=== PATIENT | male | born 1935 | race Caucasian/White ===

== ENCOUNTER 2021-02-11 10:07 | Inpatient (IN) | payer MEDICARE ==
--- NOTE | 2021-02-11 10:20 | ERPHSYRPT ---
- History of Present Illness Time Seen by Provider: 02/11/21 10:30 Source: patient Exam Limitations: no limitations Physician History: Patient is an 85-year-old male presents to our ED with his caregiver for evaluation. Patient has a history of a stroke. Patient has been aphasic for approximately 3 years. Patient unable to communicate verbally or via writing. Patient is able to hear and conveys information via hand signals. Family is concerned as patient appears to be aspirating on food and saliva. Patient is coughing more than normal. Caregiver adds that his legs are now weak. Patient is normally able to transfer with assistance. Patient now having difficulty standing. Patient normally does not ambulate independently. No fever. No trauma. No nausea or vomiting. Patient unable to convey whether or not he is in pain. No diarrhea reported. No rash. Symptoms have been going on for 2 days. Symptoms are moderate in intensity. No specific worsening or improving factors. Caregiver at bedside voices no other complaints or concerns at this time. Timing/Duration: day(s) (2 days ago) Severity: moderate Modifying Factors: Improves With: nothing Associated Symptoms: cough Allergies/Adverse Reactions: No Known Drug Allergies Allergy (Verified 02/11/21 12:25) Home Medications: No Reportable Medications [No Reported Medications] 02/11/21 [History] - Review of Systems All Other Systems: Unable due to condition - Nursing Vital Signs Nursing Vital Signs: Initial Vital Signs Temperature 97.2 F 02/11/21 10:14 Pulse Rate 67 02/11/21 10:14 Respiratory Rate 18 02/11/21 10:14 Blood Pressure 145/87 02/11/21 10:14 O2 Sat by Pulse Oximetry 98 02/11/21 10:14 Pain Scale Pain Intensity 0 - Physical Exam General Appearance: no apparent distress, other (Patient appears to be weak. Patient requires moderate assist x2 for wheelchair to bed transfer.) Eye Exam: PERRL/EOMI, eyes nml inspection, No scleral icterus, No pale conjunctivae Ears, Nose, Throat Exam: normal ENT inspection, TMs normal, pharynx normal, moist mucous membranes Neck Exam: normal inspection, non-tender, supple, full range of motion Respiratory Exam: normal breath sounds, lungs clear, airway intact, No respiratory distress Cardiovascular Exam: regular rate/rhythm, normal heart sounds, normal peripheral pulses Gastrointestinal/Abdomen Exam: soft, normal bowel sounds, No tenderness, No distention Back Exam: normal inspection, normal range of motion, No CVA tenderness Extremity Exam: normal range of motion, pelvis stable, pedal edema, No calf tenderness, No hai's sign, No tenderness Neurologic Exam: alert, oriented x 3, cooperative Skin Exam: normal color, warm, dry Lymphatic Exam: No adenopathy SpO2 Interpretation: normal O2 Delivery: Room Air - Course Nursing assessment & vital signs reviewed: Yes EKG Interpreted by Me: RATE (71), Sinus Rhythm, NORMAL AXIS, NORMAL INTERVALS - Radiology Exams Chest X-ray Interpretation: Teleradiologist Report (Haziness right base infiltrate versus atelectasis and incidental left upper lobe calcified granuloma. Heart not enlarged with CABG surgery. Bony thorax intact with mild osteopenia and degenerative changes.) - CT Exams Head CT Interpretation: Tele-radiologist Report (Nonacute senile brain. Age- appropriate global atrophy and moderate periventricular degenerative microischemia bilaterally. No acute intracranial hemorrhage abnormal extra- axial fluid collection. No mass-effect. Fourth ventricle is midline. Bony calvarium intact. Paranasal sinuses and mastoid a) Ordered Tests: Active Orders 24 hr Category Date Time Status Cork Insulator STAT Care 02/11/21 10:22 Active EKG-ER Only STAT Care 02/11/21 10:21 Active IV Insertion STAT Care 02/11/21 10:21 Active Pulse Oximetry (ED) STAT Care 02/11/21 10:21 Active CHEST 1 VIEW (PORTABLE) Stat Exams 02/11/21 10:22 Completed HEAD WITHOUT CONTRAST [CT] Stat Exams 02/11/21 10:23 Completed CBC W DIFF Stat Lab 02/11/21 10:28 Completed CMP Stat Lab 02/11/21 10:28 Completed MAGNESIUM Stat Lab 02/11/21 10:28 Completed NT PRO BNP Stat Lab 02/11/21 10:28 Completed TROPONIN Q3H Lab 02/11/21 10:28 Completed TROPONIN Q3H Lab 02/11/21 12:55 Received TROPONIN Q3H Lab 02/11/21 16:30 Ordered TROPONIN Q3H Lab 02/11/21 19:30 Ordered TROPONIN Q3H Lab 02/11/21 22:30 Ordered TSH, 3RD Generation Stat Lab 02/11/21 10:28 Completed UA W/RFX UR CULTURE Stat Lab 02/11/21 11:37 Ordered Transfer Order Routine Transfer 02/11/21 Ordered Lab/Rad Data: Laboratory Result Diagrams 02/11/21 10:28 02/11/21 10:28 Laboratory Results 02/11/21 02/11/21 02/11/21 Range/Units 13:50 10:28 10:28 WBC (4.0-10.5) K/mm3 RBC (4.1-5.6) M/mm3 Hgb (12.5-18.0) gm/dl Hct (42-50) % MCV (78-100) fl MCH (26-32) pg MCHC (32-36) g/dl RDW (11.5-14.0) % Plt Count (150-450) K/mm3 MPV (7.5-11.0) fl Gran % (36.0-66.0) % Eos # (Auto) (0-0.5) Absolute Lymphs (auto) (1.0-4.6) Absolute Monos (auto) (0.0-1.3) Lymphocytes % (24.0-44.0) % Monocytes % (0.0-12.0) % Eosinophils % (0.00-5.0) % Basophils % (0.0-0.4) % Absolute Granulocytes (1.4-6.9) Basophils # (0-0.4) Sodium 140 (137-145) mmol/L Potassium 4.1 (3.5-5.1) mmol/L Chloride 104 (98-107) mmol/L Carbon Dioxide 25 (22-30) mmol/L Anion Gap 14.6 (5-15) MEQ/L BUN 16 (9-20) mg/dL Creatinine 1.10 (0.66-1.25) mg/dL Estimated GFR > 60.0 ML/MIN Glucose 132 H (74-106) mg/dL Calcium 9.6 (8.4-10.2) mg/dL Magnesium 2.4 H (1.6-2.3) mg/dL Total Bilirubin 1.00 (0.2-1.3) mg/dL AST 27 (17-59) U/L ALT 29 (0-50) U/L Alkaline Phosphatase 96 (38-126) U/L Troponin I < 0.012 (0.000-0.034) ng/mL NT-Pro-B Natriuret Pep 476 (0-1800) pg/mL Serum Total Protein 8.1 (6.3-8.2) g/dL Albumin 4.4 (3.5-5.0) g/dL TSH 3rd Generation 2.980 (0.47-4.68) mIU/L SARS-CoV-2 (PCR) NEGATIVE (NEGATIVE) 02/11/21 Range/Units 10:28 WBC 9.4 (4.0-10.5) K/mm3 RBC 5.14 (4.1-5.6) M/mm3 Hgb 14.0 (12.5-18.0) gm/dl Hct 43.6 (42-50) % MCV 84.8 (78-100) fl MCH 27.2 (26-32) pg MCHC 32.1 (32-36) g/dl RDW 16.5 H (11.5-14.0) % Plt Count 160 (150-450) K/mm3 MPV 12.9 H (7.5-11.0) fl Gran % 55.7 (36.0-66.0) % Eos # (Auto) 0.28 (0-0.5) Absolute Lymphs (auto) 2.96 (1.0-4.6) Absolute Monos (auto) 0.86 (0.0-1.3) Lymphocytes % 31.7 (24.0-44.0) % Monocytes % 9.2 (0.0-12.0) % Eosinophils % 3.0 (0.00-5.0) % Basophils % 0.4 (0.0-0.4) % Absolute Granulocytes 5.21 (1.4-6.9) Basophils # 0.04 (0-0.4) Sodium (137-145) mmol/L Potassium (3.5-5.1) mmol/L Chloride (98-107) mmol/L Carbon Dioxide (22-30) mmol/L Anion Gap (5-15) MEQ/L BUN (9-20) mg/dL Creatinine (0.66-1.25) mg/dL Estimated GFR ML/MIN Glucose (74-106) mg/dL Calcium (8.4-10.2) mg/dL Magnesium (1.6-2.3) mg/dL Total Bilirubin (0.2-1.3) mg/dL AST (17-59) U/L ALT (0-50) U/L Alkaline Phosphatase (38-126) U/L Troponin I (0.000-0.034) ng/mL NT-Pro-B Natriuret Pep (0-1800) pg/mL Serum Total Protein (6.3-8.2) g/dL Albumin (3.5-5.0) g/dL TSH 3rd Generation (0.47-4.68) mIU/L SARS-CoV-2 (PCR) (NEGATIVE) - Progress Progress: improved Progress Note: [facility] to transfer patient to the [facility] for further evaluation and treatment. However the [facility] has no beds available at this time. Alyssia of the DC transfer center advised to admit patient to our hospital. 02/11/21 13:[address] Muñoz accepts admission to observation. We will admit patient to floor. Aspirin was not administered due to dysphagia. We will keep n.p.o. for now. Speech therapy consulted. IV fluid infusion initiated. Plan of care discussed with family. They agree to admission [facility] for further evaluation and treatment. Portions of this note were created with voice recognition technology. There may be grammatical, spelling, punctuation or sound alike errors 02/11/21 15:03 02/11/21 15:04 Covid test negative. Laboratory work-up essentially nonremarkable. CT head shows senile brain. Chest x-ray negative for acute cardiopulmonary process. 02/11/21 15:[address] Heavenly Will see patient in: hospital (observation) Counseled pt/family regarding: lab results, diagnosis, rad results - Departure Departure Disposition: Observation Clinical Impression: AMS (altered mental status), Generalized weakness, Calcified granuloma of lung, Dysphagia Condition: Stable Critical Care Time: No Referrals: HOSPITAL,'S [Primary Care Provider] -
[2021-02-11 10:42] LABS: Absolute Neutrophil Ct (ANC) 5.21 (1.4-6.9); BASOPHIL % 0.4 % (0.0-0.4); Basophil (Absolute #) 0.04 (0-0.4); Eosinophil (Absolute #) 0.28 (0-0.5); Hematocrit 43.6 % (42-50); Lymphocyte (Absolute #) 2.96 (1.0-4.6); Lymphocytes % 31.7 % (24.0-44.0); Mean Cell Volume 84.8 fl (78-100); Mean Corpuscular Hemoglobin 27.2 pg (26-32); Mean Corpuscular Hgb Concent. 32.1 g/dl (32-36); Mean Platelet Volume 12.9 fl (7.5-11.0); Monocyte (Absolute #) 0.86 (0.0-1.3); Monocytes % 9.2 % (0.0-12.0); Neutrophil % 55.7 % (36.0-66.0); Platelet Count 160 K/mm3 (150-450); Red Blood Count 5.14 M/mm3 (4.1-5.6); Red Cell Distribution Width 16.5 % (11.5-14.0); White Blood Count 9.4 K/mm3 (4.0-10.5)
--- NOTE | 2021-02-11 10:43 | XRAY ---
Indication: Acute mental status change. Multiple contiguous axial images obtained through the head without contrast. Comparison: None Age-appropriate global atrophy and moderate periventricular degenerative micro-ischemia bilaterally. No acute intracranial hemorrhage, abnormal extra-axial fluid collection, or mass effect. Fourth ventricle is midline. Bony calvarium intact. Visualized paranasal sinuses and mastoid air cells are clear. Impression: Nonacute senile brain.
--- NOTE | 2021-02-11 10:49 | XRAY ---
Indication: Acute mental status change. Pneumonia. Comparison: None Portable chest demonstrates hazy right base infiltrate versus atelectasis and incidental left upper lung calcified granuloma. Heart not enlarged with CABG surgery. Bony thorax intact with mild osteopenia and degenerative changes.
[2021-02-11 11:24] LABS: ALBUMIN 4.4 g/dL (3.5-5.0); ALKALINE PHOSPHATASE 96 U/L (38-126); ANION GAP 14.6 MEQ/L (5-15); BLOOD UREA NITROGEN 16 mg/dL (9-20); CHLORIDE 104 mmol/L (98-107); Calcium 9.6 mg/dL (8.4-10.2); Carbon Dioxide 25 mmol/L (22-30); EST GLOMERULAR FILTRATION RATE > 60.0 ML/MIN; Glucose 132 mg/dL (74-106); MAGNESIUM 2.4 mg/dL (1.6-2.3); NT PRO BNP 476 pg/mL (0-1800); Potassium 4.1 mmol/L (3.5-5.1); SGOT/AST 27 U/L (17-59); SGPT/ALT 29 U/L (0-50); SODIUM 140 mmol/L (137-145); Total Protein 8.1 g/dL (6.3-8.2)
[2021-02-11] MEDS ORDERED: Zofran 4 MG/2 ML VIAL IV PRN (15:32)
[2021-02-11] MEDS: Sodium Chloride 0.9% 1000 ML 1,000 ML IV SCH (16:45)
[2021-02-11 23:21] LABS: Appearance CLOUDY (CLEAR); Bacteria FEW /HPF (NEGATIVE); Bilirubin NEGATIVE (NEGATIVE); Blood NEGATIVE Ery/ul (0-5); Epithelial Cells RARE /HPF (FEW); Glucose NEGATIVE (NEGATIVE); Ketones NEGATIVE (NEGATIVE); Leukocyte Esterase LARGE (NEGATIVE); Mucus SLIGHT /HPF (NEGATIVE); Nitrite NEGATIVE (NEGATIVE); Protein,Urine Dip NEGATIVE (Negative); Specific Gravity 1.012 (1.005-1.025); Urobilinogen NEGATIVE mg/dL (0-1); WBC 51-100 /HPF (0-5)
[2021-02-12 05:07] LABS: Absolute Neutrophil Ct (ANC) 5.26 (1.4-6.9); BASOPHIL % 0.2 % (0.0-0.4); Basophil (Absolute #) 0.02 (0-0.4); Eosinophil (Absolute #) 0.24 (0-0.5); Hematocrit 40.5 % (42-50); Lymphocyte (Absolute #) 1.77 (1.0-4.6); Mean Cell Volume 84.4 fl (78-100); Mean Corpuscular Hemoglobin 27.1 pg (26-32); Mean Corpuscular Hgb Concent. 32.1 g/dl (32-36); Mean Platelet Volume 13.1 fl (7.5-11.0); Monocyte (Absolute #) 0.75 (0.0-1.3); Monocytes % 9.3 % (0.0-12.0); Neutrophil % 65.5 % (36.0-66.0); Platelet Count 140 K/mm3 (150-450)
[2021-02-12 05:20] LABS: ALBUMIN 4.2 g/dL (3.5-5.0); ALKALINE PHOSPHATASE 92 U/L (38-126); ANION GAP 13.4 MEQ/L (5-15); BLOOD UREA NITROGEN 14 mg/dL (9-20); CHLORIDE 104 mmol/L (98-107); Calcium 9.1 mg/dL (8.4-10.2); Carbon Dioxide 25 mmol/L (22-30); Creatinine 1 0.97 mg/dL (0.66-1.25); EST GLOMERULAR FILTRATION RATE > 60.0 ML/MIN; Glucose 115 mg/dL (74-106); Potassium 3.9 mmol/L (3.5-5.1); SGOT/AST 33 U/L (17-59); SGPT/ALT 28 U/L (0-50); SODIUM 138 mmol/L (137-145); Total Protein 7.4 g/dL (6.3-8.2)
[2021-02-12] MEDS ORDERED: APRESOLINE 20 MG/ML INJ IV PRN (07:38)
--- NOTE | 2021-02-12 08:48 | PCM.HP ---
History of Present Illness - Chief Complaint Chief Complaint: Dysphagia History of Present Illness: is a 85 year old male who [facility], he has no local physician. He was brought to the ER by a caregiver yesterday, he has a remote history of CVA and is nonverbal since then, there is reported weakness and some difficulty swallowing, in addition he requires more assistance than usual in transfers currently. (There is no family or caregiver present during my exam today so most of the history is from review of the chart.) - Review of Systems All Other Systems: Unable due to condition Medications & Allergies Home Medications: Home Medication List No Reportable Medications [No Reported Medications] 02/11/21 [History Confirmed 02/11/21] Allergies/Adverse Reactions: Allergies Allergy/AdvReac Type Severity Reaction Status Date / Time No Known Drug Allergies Allergy Verified 02/11/21 12:25 - Past Medical History Neurological History: Stroke Cardiac History: Coronary Artery Disease, High Cholesterol - Past Surgical History Past Surgical History: Yes Cardiac History: CABG - Social History Smoking Status: Unknown if ever smoked Exposure to second hand smoke: No Alcohol: None Drug Use: none - Physical Exam Vital Signs: Vital Signs - 24 hr Temp Pulse Resp BP Pulse Ox 02/12/21 07:43 98.0 F 65 16 153/94 96 02/12/21 04:00 98.6 F 60 18 171/100 94 L 02/12/21 00:00 98.7 F 68 16 152/85 95 02/11/21 20:00 98.6 F 64 17 144/78 95 02/11/21 16:13 97.5 F 77 158/98 02/11/21 15:32 95 02/11/21 15:03 97.5 F 77 20 158/98 98 02/11/21 13:12 97.8 F 74 20 133/83 98 02/11/21 12:00 60 16 131/78 96 02/11/21 11:37 97.8 F 60 20 133/82 96 02/11/21 10:14 97.2 F 67 18 145/87 98 General Appearance: no apparent distress Neurologic Exam: alert, cooperative, aphasia, other (able to nod or shake head no, denies pain. states he feels ok.), No motor deficits Respiratory Exam: normal breath sounds, lungs clear, No respiratory distress Cardiovascular Exam: regular rate/rhythm, normal heart sounds, normal peripheral pulses Gastrointestinal/Abdomen Exam: soft, normal bowel sounds, No tenderness, No mass Extremity Exam: normal inspection, normal range of motion, pelvis stable Results - Labs Lab/Micro Results: Lab Results-Last 24 Hours 02/11/21 02/11/21 02/11/21 Range/Units 10:28 10:28 10:28 WBC 9.4 (4.0-10.5) K/mm3 RBC 5.14 (4.1-5.6) M/mm3 Hgb 14.0 (12.5-18.0) gm/dl Hct 43.6 (42-50) % MCV 84.8 (78-100) fl MCH 27.2 (26-32) pg MCHC 32.1 (32-36) g/dl RDW 16.5 H (11.5-14.0) % Plt Count 160 (150-450) K/mm3 MPV 12.9 H (7.5-11.0) fl Gran % 55.7 (36.0-66.0) % Eos # (Auto) 0.28 (0-0.5) Absolute Lymphs (auto) 2.96 (1.0-4.6) Absolute Monos (auto) 0.86 (0.0-1.3) Lymphocytes % 31.7 (24.0-44.0) % Monocytes % 9.2 (0.0-12.0) % Eosinophils % 3.0 (0.00-5.0) % Basophils % 0.4 (0.0-0.4) % Absolute Granulocytes 5.21 (1.4-6.9) Basophils # 0.04 (0-0.4) Sodium 140 (137-145) mmol/L Potassium 4.1 (3.5-5.1) mmol/L Chloride 104 (98-107) mmol/L Carbon Dioxide 25 (22-30) mmol/L Anion Gap 14.6 (5-15) MEQ/L BUN 16 (9-20) mg/dL Creatinine 1.10 (0.66-1.25) mg/dL Estimated GFR > 60.0 ML/MIN Glucose 132 H (74-106) mg/dL Calcium 9.6 (8.4-10.2) mg/dL Magnesium 2.4 H (1.6-2.3) mg/dL Total Bilirubin 1.00 (0.2-1.3) mg/dL AST 27 (17-59) U/L ALT 29 (0-50) U/L Alkaline Phosphatase 96 (38-126) U/L Troponin I < 0.012 (0.000-0.034) ng/mL NT-Pro-B Natriuret Pep 476 (0-1800) pg/mL Serum Total Protein 8.1 (6.3-8.2) g/dL Albumin 4.4 (3.5-5.0) g/dL TSH 3rd Generation 2.980 (0.47-4.68) mIU/L Urine Color (YELLOW) Urine Appearance (CLEAR) Urine pH (5-6) Ur Specific [place] (1.005-1.025) Urine Protein (Negative) Urine Ketones (NEGATIVE) Urine Blood (0-5) [place]/ul Urine Nitrite (NEGATIVE) Urine Bilirubin (NEGATIVE) Urine Urobilinogen (0-1) mg/dL Ur Leukocyte Esterase (NEGATIVE) Urine WBC (Auto) (0-5) /HPF Urine RBC (Auto) (0-2) /HPF U Epithel Cells (Auto) (FEW) /HPF Urine Bacteria (Auto) (NEGATIVE) /HPF Urine Mucus (Auto) (NEGATIVE) /HPF Urine Culture Reflexed (NO) Urine Glucose (NEGATIVE) mg/dL SARS-CoV-2 (PCR) (NEGATIVE) 02/11/21 02/11/21 02/11/21 Range/Units 11:37 12:55 13:50 WBC (4.0-10.5) K/mm3 RBC (4.1-5.6) M/mm3 Hgb (12.5-18.0) gm/dl Hct (42-50) % MCV (78-100) fl MCH (26-32) pg MCHC (32-36) g/dl RDW (11.5-14.0) % Plt Count (150-450) K/mm3 MPV (7.5-11.0) fl Gran % (36.0-66.0) % Eos # (Auto) (0-0.5) Absolute Lymphs (auto) (1.0-4.6) Absolute Monos (auto) (0.0-1.3) Lymphocytes % (24.0-44.0) % Monocytes % (0.0-12.0) % Eosinophils % (0.00-5.0) % Basophils % (0.0-0.4) % Absolute Granulocytes (1.4-6.9) Basophils # (0-0.4) Sodium (137-145) mmol/L Potassium (3.5-5.1) mmol/L Chloride (98-107) mmol/L Carbon Dioxide (22-30) mmol/L Anion Gap (5-15) MEQ/L BUN (9-20) mg/dL Creatinine (0.66-1.25) mg/dL Estimated GFR ML/MIN Glucose (74-106) mg/dL Calcium (8.4-10.2) mg/dL Magnesium (1.6-2.3) mg/dL Total Bilirubin (0.2-1.3) mg/dL AST (17-59) U/L ALT (0-50) U/L Alkaline Phosphatase (38-126) U/L Troponin I < 0.012 (0.000-0.034) ng/mL NT-Pro-B Natriuret Pep (0-1800) pg/mL Serum Total Protein (6.3-8.2) g/dL Albumin (3.5-5.0) g/dL TSH 3rd Generation (0.47-4.68) mIU/L Urine Color YELLOW (YELLOW) Urine Appearance CLOUDY (CLEAR) Urine pH 7.0 (5-6) Ur Specific [place] 1.012 (1.005-1.025) Urine Protein NEGATIVE (Negative) Urine Ketones NEGATIVE (NEGATIVE) Urine Blood NEGATIVE (0-5) [place]/ul Urine Nitrite NEGATIVE (NEGATIVE) Urine Bilirubin NEGATIVE (NEGATIVE) Urine Urobilinogen NEGATIVE (0-1) mg/dL Ur Leukocyte Esterase LARGE (NEGATIVE) Urine WBC (Auto) 51-100 (0-5) /HPF Urine RBC (Auto) 3-5 (0-2) /HPF U Epithel Cells (Auto) RARE (FEW) /HPF Urine Bacteria (Auto) FEW (NEGATIVE) /HPF Urine Mucus (Auto) SLIGHT (NEGATIVE) /HPF Urine Culture Reflexed YES (NO) Urine Glucose NEGATIVE (NEGATIVE) mg/dL SARS-CoV-2 (PCR) NEGATIVE (NEGATIVE) 10/20/21 10/21/21 10/21/21 Range/Units 16:22 04:45 04:45 WBC 8.0 (4.0-10.5) K/mm3 RBC 4.80 (4.1-5.6) M/mm3 Hgb 13.0 (12.5-18.0) gm/dl Hct 40.5 L (42-50) % MCV 84.4 (78-100) fl MCH 27.1 (26-32) pg MCHC 32.1 (32-36) g/dl RDW 16.0 H (11.5-14.0) % Plt Count 140 L (150-450) K/mm3 MPV 13.1 H (7.5-11.0) fl Gran % 65.5 (36.0-66.0) % Eos # (Auto) 0.24 (0-0.5) Absolute Lymphs (auto) 1.77 (1.0-4.6) Absolute Monos (auto) 0.75 (0.0-1.3) Lymphocytes % 22.0 L (24.0-44.0) % Monocytes % 9.3 (0.0-12.0) % Eosinophils % 3.0 (0.00-5.0) % Basophils % 0.2 (0.0-0.4) % Absolute Granulocytes 5.26 (1.4-6.9) Basophils # 0.02 (0-0.4) Sodium 138 (137-145) mmol/L Potassium 3.9 (3.5-5.1) mmol/L Chloride 104 (98-107) mmol/L Carbon Dioxide 25 (22-30) mmol/L Anion Gap 13.4 (5-15) MEQ/L BUN 14 (9-20) mg/dL Creatinine 0.97 (0.66-1.25) mg/dL Estimated GFR > 60.0 ML/MIN Glucose 115 H (74-106) mg/dL Calcium 9.1 (8.4-10.2) mg/dL Magnesium (1.6-2.3) mg/dL Total Bilirubin 1.30 (0.2-1.3) mg/dL AST 33 (17-59) U/L ALT 28 (0-50) U/L Alkaline Phosphatase 92 (38-126) U/L Troponin I < 0.012 (0.000-0.034) ng/mL NT-Pro-B Natriuret Pep (0-1800) pg/mL Serum Total Protein 7.4 (6.3-8.2) g/dL Albumin 4.2 (3.5-5.0) g/dL TSH 3rd Generation (0.47-4.68) mIU/L Urine Color (YELLOW) Urine Appearance (CLEAR) Urine pH (5-6) Ur Specific [place] (1.005-1.025) Urine Protein (Negative) Urine Ketones (NEGATIVE) Urine Blood (0-5) [place]/ul Urine Nitrite (NEGATIVE) Urine Bilirubin (NEGATIVE) Urine Urobilinogen (0-1) mg/dL Ur Leukocyte Esterase (NEGATIVE) Urine WBC (Auto) (0-5) /HPF Urine RBC (Auto) (0-2) /HPF U Epithel Cells (Auto) (FEW) /HPF Urine Bacteria (Auto) (NEGATIVE) /HPF Urine Mucus (Auto) (NEGATIVE) /HPF Urine Culture Reflexed (NO) Urine Glucose (NEGATIVE) mg/dL SARS-CoV-2 (PCR) (NEGATIVE) - Radiology Impressions Radiology Exams & Impressions: Radiology Procedures Category Date Time Status CHEST 1 VIEW (PORTABLE) Stat Exams 02/11/21 10:22 Completed HEAD WITHOUT CONTRAST [CT] Stat Exams 02/11/21 10:23 Completed MODIFIED BARIUM SWALLOW EXAM Routine Exams 02/12/21 00:00 Ordered Assessment/Plan (1) UTI (urinary tract infection) Current Visit: Yes Status: Acute Assessment & Plan: on rocephin, culture pending Code(s): N39.0 - URINARY TRACT INFECTION, SITE NOT SPECIFIED (2) History of CVA with residual deficit Current Visit: Yes Status: Acute Assessment & Plan: swallow eval ordered, speech recommended MBS that is pending completion Code(s): I69.30 - UNSPECIFIED SEQUELAE OF CEREBRAL INFARCTION (3) AMS (altered mental status) Current Visit: Yes Status: Acute Code(s): R41.82 - ALTERED MENTAL STATUS, UNSPECIFIED
[2021-02-12] MEDS: ROCEPHIN 1 Gm-D5w 50 ml Bag** 1 G/50 ML IVPB IV SCH (11:19)
[2021-02-12] MEDS: Sodium Chloride 0.9% 1000 ML 1,000 ML IV SCH ×2 (11:19→21:25)
--- NOTE | 2021-02-12 11:53 | XRAY ---
Indication: Aspiration. Modified barium swallow study performed bedside by the Department of speech therapy with fluoroscopic assistance provided. Patient ingested multiple consistencies of liquids. Full report and recommendations will be reported separately. Approximately 2 minutes 35 seconds fluoroscopy used.
[2021-02-12] MEDS: MORPHINE SULFATE 2 MG INJ IV PRN (21:25)
[2021-02-13 05:24] LABS: Absolute Neutrophil Ct (ANC) 4.21 (1.4-6.9); BASOPHIL % 0.3 % (0.0-0.4); Basophil (Absolute #) 0.02 (0-0.4); Eosinophil % 3.9 % (0.00-5.0); Eosinophil (Absolute #) 0.26 (0-0.5); Hematocrit 40.2 % (42-50); Hemoglobin 12.7 gm/dl (12.5-18.0); Lymphocytes % 22.4 % (24.0-44.0); Mean Cell Volume 85.7 fl (78-100); Mean Corpuscular Hemoglobin 27.1 pg (26-32); Mean Corpuscular Hgb Concent. 31.6 g/dl (32-36); Mean Platelet Volume 12.9 fl (7.5-11.0); Monocyte (Absolute #) 0.72 (0.0-1.3); Monocytes % 10.7 % (0.0-12.0); Neutrophil % 62.7 % (36.0-66.0); Platelet Count 134 K/mm3 (150-450); Red Blood Count 4.69 M/mm3 (4.1-5.6); White Blood Count 6.7 K/mm3 (4.0-10.5)
[2021-02-13 06:02] LABS: ANION GAP 11.6 MEQ/L (5-15); BLOOD UREA NITROGEN 12 mg/dL (9-20); CHLORIDE 103 mmol/L (98-107); Carbon Dioxide 26 mmol/L (22-30); EST GLOMERULAR FILTRATION RATE > 60.0 ML/MIN; Glucose 98 mg/dL (74-106); MAGNESIUM 2.3 mg/dL (1.6-2.3); Potassium 3.9 mmol/L (3.5-5.1); SODIUM 137 mmol/L (137-145)
[2021-02-13] MEDS: Sodium Chloride 0.9% 1000 ML 1,000 ML IV SCH (07:33)
[2021-02-13] MEDS ORDERED: PHARMACY DOSING REQUEST MC ONE (08:15)
[2021-02-13] MEDS: ROCEPHIN 1 Gm-D5w 50 ml Bag** 1 G/50 ML IVPB IV SCH (09:17)
[2021-02-13] MEDS ORDERED: [UNRECOGNIZED DRUG - NUTRITION] IV SCH (10:00)
[2021-02-13] MEDS ORDERED: CEFAZOLIN 2 GM-D5W BAG** 2 GM/50 ML ML IV SCH (11:30)
[2021-02-13] MEDS ORDERED: Lactated Ringers 1,000 ML IV SCH (12:00)
[2021-02-13] MEDS ORDERED: FLUZONE HIGH-DOSE QUAD 2021-22 IM ONE (12:00)
[2021-02-13] MEDS ORDERED: DIPRIVAN 200 MG/20 ML IV ONE (19:48)
[2021-02-13] MEDS ORDERED: Ketamine HCl 50 MG/ML ONE (19:48)
[2021-02-14] MEDS: MORPHINE SULFATE 2 MG INJ IV PRN ×3 (00:25→22:59)
[2021-02-14 05:12] LABS: Hematocrit 41.6 % (42-50); Hemoglobin 13.4 gm/dl (12.5-18.0); Mean Cell Volume 84.4 fl (78-100); Mean Corpuscular Hemoglobin 27.2 pg (26-32); Mean Corpuscular Hgb Concent. 32.2 g/dl (32-36); Mean Platelet Volume 12.4 fl (7.5-11.0); Platelet Count 133 K/mm3 (150-450); Red Blood Count 4.93 M/mm3 (4.1-5.6); Red Cell Distribution Width 16.1 % (11.5-14.0); White Blood Count 11.9 K/mm3 (4.0-10.5)
[2021-02-14 05:26] LABS: ALBUMIN 4.1 g/dL (3.5-5.0); ANION GAP 14.1 MEQ/L (5-15); BLOOD UREA NITROGEN 11 mg/dL (9-20); CHLORIDE 102 mmol/L (98-107); Calcium 8.9 mg/dL (8.4-10.2); Carbon Dioxide 24 mmol/L (22-30); Creatinine 1 0.95 mg/dL (0.66-1.25); EST GLOMERULAR FILTRATION RATE > 60.0 ML/MIN; Glucose 158 mg/dL (74-106); MAGNESIUM 2.3 mg/dL (1.6-2.3); Potassium 3.7 mmol/L (3.5-5.1); SODIUM 137 mmol/L (137-145); Total Protein 7.3 g/dL (6.3-8.2)
--- NOTE | 2021-02-14 07:38 | PCM.NOTE ---
Date and Time: 02/14/21733 Subjective Assessment: peg tube was placed per surgery, not yet being used. patient is in no distress this morning Objective Exam General Appearance: no apparent distress Respiratory Exam: normal breath sounds, lungs clear, No respiratory distress Cardiovascular Exam: regular rate/rhythm, normal heart sounds Gastrointestinal/Abdomen Exam: soft, No tenderness, No mass Extremity Exam: normal inspection, normal range of motion OBJECTIVE DATA Vital Signs: Vital Signs - 24 hr Temp Pulse Resp BP Pulse Ox 02/14/21 07:23 98.6 F 77 21 160/94 95 02/14/21 04:00 98.9 F 75 18 136/78 96 02/14/21 00:15 98.8 F 88 25 H 153/94 94 L 02/13/21 23:15 98.1 F 82 24 151/87 96 02/13/21 22:45 98.1 F 70 22 159/92 96 02/13/21 21:15 98.6 F 64 14 153/99 94 L 02/13/21 21:00 98.2 F 82 12 164/94 94 L 02/13/21 20:45 98.6 F 64 12 178/95 97 02/13/21 20:30 98.0 F 63 17 170/99 96 02/13/21 19:56 98.2 F 64 16 167/83 97 02/13/21 18:13 97.7 F 57 L 18 145/90 98 02/13/21 16:00 97.7 F 57 L 18 145/90 98 02/13/21 12:00 97.8 F 67 21 142/91 97 02/13/21 08:00 97.7 F 56 L 17 154/78 96 Pain Assessment - Last Documented Pain Intensity 0 [facility] Intake and Output: Intake & Output 02/11/21 02/12/21 02/13/21 02/14/21 11:59 11:59 11:59 11:59 Intake Total 1263 2188 1920 Output Total 250 Balance 1013 2188 1920 Weight 94.6 kg 94.6 kg 90.1 kg Lab Results: Lab Results-Last 24 Hours 02/14/21 02/14/21 Range/Units 04:40 04:40 WBC 11.9 H (4.0-10.5) K/mm3 RBC 4.93 (4.1-5.6) M/mm3 Hgb 13.4 (12.5-18.0) gm/dl Hct 41.6 L (42-50) % MCV 84.4 (78-100) fl MCH 27.2 (26-32) pg MCHC 32.2 (32-36) g/dl RDW 16.1 H (11.5-14.0) % Plt Count 133 L (150-450) K/mm3 MPV 12.4 H (7.5-11.0) fl Sodium 137 (137-145) mmol/L Potassium 3.7 (3.5-5.1) mmol/L Chloride 102 (98-107) mmol/L Carbon Dioxide 24 (22-30) mmol/L Anion Gap 14.1 (5-15) MEQ/L BUN 11 (9-20) mg/dL Creatinine 0.95 (0.66-1.25) mg/dL Estimated GFR > 60.0 ML/MIN Glucose 158 H (74-106) mg/dL Calcium 8.9 (8.4-10.2) mg/dL Magnesium 2.3 (1.6-2.3) mg/dL Serum Total Protein 7.3 (6.3-8.2) g/dL Albumin 4.1 (3.5-5.0) g/dL Radiology Exams: Radiology Procedures Category Date Time Status MODIFIED BARIUM SWALLOW EXAM Routine Exams 02/12/21 10:19 Completed Multi-Disciplinary Progress Notes: Multi-Disciplinary Progress Notes 02/13/21 13:09 Case Management Note by Susana Potter PER [facility] HAS ACCEPTED PATIENT FOR TIME OF DC Initialized on 02/13/21 13:09 - END OF NOTE 02/13/21 12:00 (created 02/13/21 13:11) Case Management Note by Che Woody SPOKE WITH DEANDRA AT [facility] - THEY ARE GOOD TO TAKE PT WHEN MD IS READY FOR DISCHARGE. RELAYED INFORMATION/ORDERS FOR TUBE FEEDS. Initialized on 02/13/21 13:11 - END OF NOTE 02/13/21 10:19 Pharmacy Note by Chalo Winkler Patient needs short term TPN until tube feedings start. Will infuse one bag of Perikabiven peripheral formula at 80ml/hr. This will provide 1300 calories. Initialized on 02/13/21 10:19 - END OF NOTE Assessment/Plan (1) UTI (urinary tract infection) Current Visit: Yes Status: Acute Assessment & Plan: culture negative thus far Code(s): N39.0 - URINARY TRACT INFECTION, SITE NOT SPECIFIED (2) History of CVA with residual deficit Current Visit: Yes Status: Acute Code(s): I69.30 - UNSPECIFIED SEQUELAE OF CEREBRAL INFARCTION (3) AMS (altered mental status) Current Visit: Yes Status: Acute Assessment & Plan: patient with concern for aspiration, mild increase in wbc today, has been on rocephin but culture negative. will start zosyn emperically in case there was some aspiration, will repeat chest xray today Code(s): R41.82 - ALTERED MENTAL STATUS, UNSPECIFIED
--- NOTE | 2021-02-14 08:16 | XRAY ---
Indication: Aspiration. Comparison: February 11, 2021. Portable apical lordotic chest less inflated with mild clearing of previous right base infiltrate/atelectasis. Remaining heart and lungs unremarkable again with incidental CABG and left upper lobe calcified granuloma. No new cardiopulmonary abnormalities.
[2021-02-14] MEDS: Zosyn 3.375 GM Vial 3.375 GM in Sodium Chloride 100ML MINI-BAG PLUS 100 ML IV SCH ×2 (13:21→18:00)
[2021-02-15] MEDS: Zosyn 3.375 GM Vial 3.375 GM in Sodium Chloride 100ML MINI-BAG PLUS 100 ML IV SCH ×3 (00:34→12:15)
[2021-02-15 06:05] LABS: Absolute Neutrophil Ct (ANC) 3.79 (1.4-6.9); BASOPHIL % 0.4 % (0.0-0.4); Basophil (Absolute #) 0.03 (0-0.4); Eosinophil % 4.9 % (0.00-5.0); Eosinophil (Absolute #) 0.34 (0-0.5); Hematocrit 38.5 % (42-50); Hemoglobin 12.3 gm/dl (12.5-18.0); Lymphocyte (Absolute #) 1.85 (1.0-4.6); Lymphocytes % 26.8 % (24.0-44.0); Mean Cell Volume 85.6 fl (78-100); Mean Corpuscular Hemoglobin 27.3 pg (26-32); Mean Corpuscular Hgb Concent. 31.9 g/dl (32-36); Mean Platelet Volume 13.2 fl (7.5-11.0); Neutrophil % 54.9 % (36.0-66.0); Platelet Count 127 K/mm3 (150-450); Red Cell Distribution Width 16.5 % (11.5-14.0); White Blood Count 6.9 K/mm3 (4.0-10.5)
[2021-02-15 06:26] LABS: ALBUMIN 3.7 g/dL (3.5-5.0); ALKALINE PHOSPHATASE 78 U/L (38-126); ANION GAP 13.7 MEQ/L (5-15); BLOOD UREA NITROGEN 14 mg/dL (9-20); CHLORIDE 101 mmol/L (98-107); Calcium 8.8 mg/dL (8.4-10.2); Carbon Dioxide 26 mmol/L (22-30); Creatinine 1 1.17 mg/dL (0.66-1.25); EST GLOMERULAR FILTRATION RATE > 60.0 ML/MIN; Glucose 133 mg/dL (74-106); Potassium 3.3 mmol/L (3.5-5.1); SGOT/AST 45 U/L (17-59); SGPT/ALT 38 U/L (0-50); SODIUM 138 mmol/L (137-145); Total Protein 6.8 g/dL (6.3-8.2)
--- NOTE | 2021-02-15 09:18 | PCM.DS ---
Discharge Summary Date of Admission: 02/12/21 08:44 Admitting Physician: KODY URIARTE Consults: Consults on Case 02/13/21 08:14 Consult Surgery ROUTINE 02/13/21 10:25 Nutritional Consult ROUTINE Primary Care Provider: [facility] Allergies Allergies No Known Drug Allergies Allergy (Verified 02/11/21 12:25) Hospital Summary - Hospital Course Hospital Course: patient is an 85[facility] admitted here with no local physician. 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 PEG tube placed, no obvious infectious source or organic cause for decline, intermediate prognosis is poor and POA is aware. - Vitals & Intake/Output Vital Signs: Vital Signs Temperature 98.6 F 02/15/21 08:00 Pulse Rate 70 02/15/21 08:00 Respiratory Rate 16 02/15/21 08:00 Blood Pressure 118/67 02/15/21 08:00 O2 Sat by Pulse Oximetry 97 02/15/21 08:00 Intake & Output: Intake & Output 02/12/21 02/13/21 02/14/21 02/15/21 11:59 11:59 11:59 11:59 Intake Total 1263 2188 1920 1528 Output Total 250 125 Balance 1013 2188 1920 1403 Weight 94.6 kg 90.1 kg 90.4 kg - Lab Result Diagrams: 02/15/21 05:10 02/15/21 05:10 Lab Results-Last 24 Hrs: Lab Results-Last 24 Hours 02/15/21 02/15/21 Range/Units 05:10 05:10 WBC 6.9 (4.0-10.5) K/mm3 RBC 4.50 (4.1-5.6) M/mm3 Hgb 12.3 L (12.5-18.0) gm/dl Hct 38.5 L (42-50) % MCV 85.6 (78-100) fl MCH 27.3 (26-32) pg MCHC 31.9 L (32-36) g/dl RDW 16.5 H (11.5-14.0) % Plt Count 127 L (150-450) K/mm3 MPV 13.2 H (7.5-11.0) fl Gran % 54.9 (36.0-66.0) % Eos # (Auto) 0.34 (0-0.5) Absolute Lymphs (auto) 1.85 (1.0-4.6) Absolute Monos (auto) 0.90 (0.0-1.3) Lymphocytes % 26.8 (24.0-44.0) % Monocytes % 13.0 H (0.0-12.0) % Eosinophils % 4.9 (0.00-5.0) % Basophils % 0.4 (0.0-0.4) % Absolute Granulocytes 3.79 (1.4-6.9) Basophils # 0.03 (0-0.4) Sodium 138 (137-145) mmol/L Potassium 3.3 L (3.5-5.1) mmol/L Chloride 101 (98-107) mmol/L Carbon Dioxide 26 (22-30) mmol/L Anion Gap 13.7 (5-15) MEQ/L BUN 14 (9-20) mg/dL Creatinine 1.17 (0.66-1.25) mg/dL Estimated GFR > 60.0 ML/MIN Glucose 133 H (74-106) mg/dL Calcium 8.8 (8.4-10.2) mg/dL Total Bilirubin 1.80 H (0.2-1.3) mg/dL AST 45 (17-59) U/L ALT 38 (0-50) U/L Alkaline Phosphatase 78 (38-126) U/L Serum Total Protein 6.8 (6.3-8.2) g/dL Albumin 3.7 (3.5-5.0) g/dL Micro Results-Entire Visit: Microbiology 02/11/21 11:37 Urine Culture - Preliminary Clean Catch Midstream NO GROWTH TO DATE - Radiology Exams Ordered Rad Exams-Entire Visit: Radiology Procedures Category Date Time Status CHEST 1 VIEW (PORTABLE) Routine Exams 02/14/21 07:34 Completed - Procedures and Test Procedures and Tests throughout Hospitalization: Therapy Orders & Screens 02/11/21 15:32 Speech Therapy Eval & Treat [ST Eval & Treat ( Order)] .as ordered Comment: Physician Instructions: Reason For Exam: Evaluate: Yes Treat: Yes Reason for Eval: swallow study Diagnosis: Dysphagia Discharge Exam General Appearance: no apparent distress, alert Neurologic Exam: alert Respiratory Exam: normal breath sounds, lungs clear, No respiratory distress Cardiovascular Exam: regular rate/rhythm, normal heart sounds Gastrointestinal/Abdomen Exam: soft, No tenderness, No mass Extremity Exam: normal inspection, normal range of motion Skin Exam: normal color, warm, dry Final Diagnosis/Problem List - Final Discharge Diagnosis/Problem (1) At high risk for aspiration Current Visit: Yes Status: Acute Assessment & Plan: peg placed, tolerating tube feeds. plan to [facility] Code(s): Z91.89 - OT PERSONAL RISK FACTORS, NOT ELSEWHERE CLASSIFIED (2) AMS (altered mental status) Current Visit: Yes Status: Acute Code(s): R41.82 - ALTERED MENTAL STATUS, UNSPECIFIED (3) UTI (urinary tract infection) Current Visit: Yes Status: Acute Assessment & Plan: culture negative, ruled out Code(s): N39.0 - URINARY TRACT INFECTION, SITE NOT SPECIFIED (4) History of CVA with residual deficit Current Visit: Yes Status: Acute Code(s): I69.30 - UNSPECIFIED SEQUELAE OF CEREBRAL INFARCTION - Discharge Disposition: DC TO [facility] Condition: Stable Prescriptions: No Action No Reportable Medications [No Reported Medications] Additional Instructions: continue tube feeds as prescribed, PT/OT/ST to consult Follow up with: HOSPITAL,'[facility] [Primary Care Provider] -
[2021-02-15] MEDS ORDERED: FLUZONE HIGH-DOSE QUAD 2021-22 IM ONE (11:15)
[2021-02-15 12:11] VITALS: BP 121/79; PULSE 71; O2SAT 95
--- NOTE | 2021-02-16 13:44 | OP ---
SURGERY DATE/TIME: 02/13/20211939 PREOPERATIVE DIAGNOSIS: Inability to maintain nutrition. POSTOPERATIVE DIAGNOSIS: Inability to maintain nutrition. PROCEDURE: PEG tube placement. SURGEON: Yannick Horton M.D. ANESTHESIA: MAC. COMPLICATIONS: None. CONDITION: Stable. INDICATION: The patient requiring access for p.o. feeds and medicine at this time. He has lost weight. DESCRIPTION OF PROCEDURE: He is taken to endoscopy. Left lateral decubitus position. Pharyngoesophageal junction cannulated. Esophagus down to the gastroesophageal junction satisfactory. Fundus, body, antrum normal. Pylorus open. Coming back to the junction, body and antrum seen against the anterior abdominal wall. Prep and draped. 1% lidocaine Angiocath, wire catheter pulled through. The scope reintroduced. It was well seated. A buffer was placed. Sterile dressing placed. Patient tolerated the procedure satisfactorily.
--- NOTE | 2021-02-16 13:45 | CONS ---
CONSULT DATE: 02/13/2021 HISTORY: The patient had a stroke. He has multiple medical problems. His eyes are open. He is not really conversant. On physical examination his abdomen is satisfactory. There is no upper abdominal incision. It is flat. He has not been eating. He has been losing weight. He is certainly a candidate for PEG tube. IMPRESSION: Inability to maintain nutrition. PLAN: PEG tube.
== END 2021-02-15 14:13 | DRG 65 ==
LOC: ED 10:07 → ICU 15:21 → OBSVTOIN 02-12 08:44
PROVIDERS: ADMIT Family Medicine; ATTEND Family Medicine
PROC: 0DH63UZ Insertion of Feeding Device into Stomach, Percutaneous Approach (ICD-10-PCS; principal; 2021-02-13)
DX: I63.9 Cerebral infarction, unspecified (principal); N39.0 Urinary tract infection, site not specified; R47.01 Aphasia; R13.10 Dysphagia, unspecified; R41.82 Altered mental status, unspecified; Z20.822 Contact with and (suspected) exposure to COVID-19
CPT/HCPCS: 36000; 36415; 43246; 70450; 71045; 74230; 80048; 80053; 81001; 82040; 83735; 83880; 84155; 84443; 84484; 85025; 85027; 87077; 87086; 87186; 92611; 93005; 93041; 93268; 94760; 99285; G0008; G0378; U0003; 90662; 99100; J0696; J2270; J2704; L0625

== ENCOUNTER 2021-06-22 12:07 | Inpatient (IN) | payer MEDICARE ==
--- NOTE | 2021-06-22 12:17 | ERPHSYRPT ---
- History of Present Illness Time Seen by Provider: 06/22/21 12:17 Source: patient, EMS Exam Limitations: clinical condition Physician History: This is an 85-year-old white male patient who is a resident of [facility] and has been aphasic since his stroke in the past. Patient has a history of coronary artery disease, he has had a CABG in the past and has had elevated cholesterol. He has history of urinary tract infections. He currently takes no medications on a daily basis and has no known drug allergies. What was of concern at the residential was the patient normally is responsive but today was not responsive. Patient presents to the emergency department via EMS and he did respond. Patient also had a fever. Timing/Duration: today Severity: moderate Associated Symptoms: other (Patient aphasic) Allergies/Adverse Reactions: No Known Drug Allergies Allergy (Verified 06/22/21 12:34) Home Medications: No Reportable Medications [No Reported Medications] 02/11/21 [History] Hx Tetanus, Diphtheria Vaccination/Date Given: No Hx Influenza Vaccination/Date Given: No Hx Pneumococcal Vaccination/Date Given: No Travel Risk - International Travel Have you traveled outside of the country in past 3 weeks: No - Coronavirus Screening Are you exhibiting any of the following symptoms?: No Close contact with a COVID-19 positive Pt in past 14-21 Days: No - Vaccine Status Have you recieved a Covid-19 vaccination: Yes Costumed Character Entertainer: [employer] - Review of Systems Constitutional: Fever Eyes: No Symptoms Ears, Nose, & Throat: No Symptoms Respiratory: No Symptoms Cardiac: No Symptoms Abdominal/Gastrointestinal: No Symptoms Genitourinary Symptoms: No Symptoms Musculoskeletal: No Symptoms Skin: No Symptoms Neurological: Lethargy (More noticeable today), Other (Patient chronically aphasic) Psychological: No Symptoms Endocrine: No Symptoms Hematologic/Lymphatic: No Symptoms Immunological/Allergic: No Symptoms All Other Systems: Reviewed and Negative - Past Medical History Pertinent Past Medical History: Yes Neurological History: Stroke Cardiac History: Coronary Artery Disease, High Cholesterol - Past Surgical History Past Surgical History: Yes Cardiac: CABG - Social History Smoking Status: Unknown if ever smoked Exposure to second hand smoke: No Drug Use: none Patient Lives Alone: No (sitters 15/11) - Nursing Vital Signs Nursing Vital Signs: Initial Vital Signs O2 Sat by Pulse Oximetry 94 L 06/22/21 12:08 Pain Scale Pain Intensity 0 - Physical Exam General Appearance: no apparent distress, lethargy (Mild but arousable) Eye Exam: PERRL/EOMI, eyes nml inspection Ears, Nose, Throat Exam: normal ENT inspection, moist mucous membranes Neck Exam: normal inspection, non-tender, supple, full range of motion Respiratory Exam: normal breath sounds, lungs clear, airway intact, No chest tenderness, No respiratory distress Cardiovascular Exam: regular rate/rhythm, normal heart sounds, normal peripheral pulses Gastrointestinal/Abdomen Exam: soft, normal bowel sounds, No tenderness Rectal Exam: not done Back Exam: normal inspection, normal range of motion, No CVA tenderness Neurologic Exam: aphasia Skin Exam: normal color, warm, dry Lymphatic Exam: No adenopathy SpO2 Interpretation: borderline oxygenation O2 Delivery: Room Air - Course Nursing assessment & vital signs reviewed: Yes Ordered Tests: Active Orders 24 hr Category Date Time Status IV Insertion STAT Care 06/22/21 12:23 Active IV Insertion-2nd Peripheral STAT Care 06/22/21 12:57 Active NPO (ED) STAT Care 06/22/21 12:23 Active Pulse Oximetry (ED) STAT Care 06/22/21 12:23 Active CHEST 1 VIEW (PORTABLE) Stat Exams 06/22/21 12:23 Completed HEAD WITHOUT CONTRAST [CT] Stat Exams 06/22/21 12:23 Completed BLOOD CULTURE Stat Lab 06/22/21 12:46 Received CBC W DIFF Stat Lab 06/22/21 12:40 Completed CMP Stat Lab 06/22/21 12:40 Completed CULTURE,URINE Stat Lab 06/22/21 12:34 Received INFLUENZA A+B VALERI Stat Lab 06/22/21 13:30 Completed Manual Differential NC Stat Lab 06/22/21 12:40 Completed [place] Screen Stat Lab 06/22/21 12:40 Completed UA W/RFX UR CULTURE Stat Lab 06/22/21 12:34 Completed Transfer Order Routine Transfer 06/22/21 Ordered Medication Summary Generic Name Dose Route Start Last Admin Trade Name Freq PRN Reason Stop Dose Admin Sodium Chloride 1,000 mls @ 75 mls/hr 06/22/21 15:15 06/22/21 15:28 Sodium Chloride 0.9% 1000 Ml IV 07/22/21 15:14 75 mls/hr .[id number] CECIL Administration Discontinued Medications Generic Name Dose Route Start Last Admin Trade Name Freq PRN Reason Stop Dose Admin Sodium Chloride 500 mls @ 500 mls/hr 06/22/21 12:25 06/22/21 14:24 Sodium Chloride 0.9% 500 Ml IV 06/22/21 13:24 Infused .Q1H ONE Infusion Sodium Chloride Confirm 06/22/21 12:48 Sodium Chloride 0.9% 500 Ml Administered 06/22/21 12:49 Dose 500 mls @ ud IV .STK-MED ONE Ceftriaxone Sodium/Dextrose 1 g in 50 mls @ 100 mls/hr 06/22/21 14:16 06/22/21 14:51 Rocephin 1 Gm-D5w 50 Ml Bag IV 06/22/21 14:45 Infused STAT STA Infusion Ceftriaxone Sodium/Dextrose Confirm 06/22/21 14:19 Rocephin 1 Gm-D5w 50 Ml Bag Administered 06/22/21 14:20 Dose 1 g in 50 mls @ ud IV .STK-MED ONE Lab/Rad Data: Laboratory Result Diagrams 06/22/21 12:40 06/22/21 12:40 Laboratory Results 06/22/21 06/22/21 06/22/21 Range/Units 15:10 13:30 13:30 WBC (4.0-10.5) K/mm3 RBC (4.1-5.6) M/mm3 Hgb (12.5-18.0) gm/dl Hct (42-50) % MCV (78-100) fl MCH (26-32) pg MCHC (32-36) g/dl RDW (11.5-14.0) % Plt Count (150-450) K/mm3 Gran % (36.0-66.0) % Eos # (Auto) (0-0.5) Absolute Lymphs (auto) (1.0-4.6) Absolute Monos (auto) (0.0-1.3) Lymphocytes % (24.0-44.0) % Monocytes % (0.0-12.0) % Eosinophils % (0.00-5.0) % Basophils % (0.0-0.4) % Absolute Granulocytes (1.4-6.9) Segmented Neutrophils (36.-66.) % Band Neutrophils (0.0-2.0) % Lymphocytes (Manual) (24-44) % Monocytes (Manual) (0.0-12.0) % Basophils # (0-0.4) Platelet Estimate (NORMAL) RBC Morphology Sodium (137-145) mmol/L Potassium (3.5-5.1) mmol/L Chloride (98-107) mmol/L Carbon Dioxide (22-30) mmol/L Anion Gap (5-15) MEQ/L BUN (9-20) mg/dL Creatinine (0.66-1.25) mg/dL Estimated GFR ML/MIN Glucose (74-106) mg/dL Calcium (8.4-10.2) mg/dL Total Bilirubin (0.2-1.3) mg/dL AST (17-59) U/L ALT (0-50) U/L Alkaline Phosphatase (38-126) U/L Serum Total Protein (6.3-8.2) g/dL Albumin (3.5-5.0) g/dL Urine Color (YELLOW) Urine Appearance (CLEAR) Urine pH (5-6) Ur Specific [place] (1.005-1.025) Urine Protein (Negative) Urine Ketones (NEGATIVE) Urine Blood (0-5) [place]/ul Urine Nitrite (NEGATIVE) Urine Bilirubin (NEGATIVE) Urine Urobilinogen (0-1) mg/dL Ur Leukocyte Esterase (NEGATIVE) Urine WBC (Auto) (0-5) /HPF Urine RBC (Auto) (0-2) /HPF U Hyaline Cast (Auto) (0-2) /LPF U Epithel Cells (Auto) (FEW) /HPF Urine Bacteria (Auto) (NEGATIVE) /HPF Urine Mucus (Auto) (NEGATIVE) /HPF Urine Culture Reflexed (NO) Urine Glucose (NEGATIVE) mg/dL Monoscreen (Negative) Influenza Type A Ag NEGATIVE NEGATIVE (NEGATIVE) Influenza Type B Ag NEGATIVE NEGATIVE (NEGATIVE) RSV (PCR) NEGATIVE (Negative) SARS-CoV-2 (PCR) NEGATIVE (NEGATIVE) Group A Strep Antibody NOT DETECTED (NEGATIVE) 06/22/21 06/22/21 06/22/21 Range/Units 12:40 12:40 12:40 WBC 25.6 H* (4.0-10.5) K/mm3 RBC 5.32 (4.1-5.6) M/mm3 Hgb 14.5 (12.5-18.0) gm/dl Hct 44.8 (42-50) % MCV 84.2 (78-100) fl MCH 27.3 (26-32) pg MCHC 32.4 (32-36) g/dl RDW 17.4 H (11.5-14.0) % Plt Count 76 L (150-450) K/mm3 Gran % 93.6 H (36.0-66.0) % Eos # (Auto) 0.02 (0-0.5) Absolute Lymphs (auto) 0.56 L (1.0-4.6) Absolute Monos (auto) 1.02 (0.0-1.3) Lymphocytes % 2.2 L (24.0-44.0) % Monocytes % 4.0 (0.0-12.0) % Eosinophils % 0.1 (0.00-5.0) % Basophils % 0.1 (0.0-0.4) % Absolute Granulocytes 23.98 H (1.4-6.9) Segmented Neutrophils 90 H (36.-66.) % Band Neutrophils 5 H (0.0-2.0) % Lymphocytes (Manual) 1 L (24-44) % Monocytes (Manual) 4 (0.0-12.0) % Basophils # 0.02 (0-0.4) Platelet Estimate DECREASED (NORMAL) RBC Morphology NORMAL Sodium 141 (137-145) mmol/L Potassium 4.4 (3.5-5.1) mmol/L Chloride 106 (98-107) mmol/L Carbon Dioxide 20 L (22-30) mmol/L Anion Gap 18.8 H (5-15) MEQ/L BUN 55 H (9-20) mg/dL Creatinine 4.28 H (0.66-1.25) mg/dL Estimated GFR 14.1 ML/MIN Glucose 147 H (74-106) mg/dL Calcium 9.0 (8.4-10.2) mg/dL Total Bilirubin 1.40 H (0.2-1.3) mg/dL AST 46 (17-59) U/L ALT 28 (0-50) U/L Alkaline Phosphatase 115 (38-126) U/L Serum Total Protein 7.3 (6.3-8.2) g/dL Albumin 3.9 (3.5-5.0) g/dL Urine Color (YELLOW) Urine Appearance (CLEAR) Urine pH (5-6) Ur Specific [place] (1.005-1.025) Urine Protein (Negative) Urine Ketones (NEGATIVE) Urine Blood (0-5) [place]/ul Urine Nitrite (NEGATIVE) Urine Bilirubin (NEGATIVE) Urine Urobilinogen (0-1) mg/dL Ur Leukocyte Esterase (NEGATIVE) Urine WBC (Auto) (0-5) /HPF Urine RBC (Auto) (0-2) /HPF U Hyaline Cast (Auto) (0-2) /LPF U Epithel Cells (Auto) (FEW) /HPF Urine Bacteria (Auto) (NEGATIVE) /HPF Urine Mucus (Auto) (NEGATIVE) /HPF Urine Culture Reflexed (NO) Urine Glucose (NEGATIVE) mg/dL Monoscreen NEGATIVE (Negative) Influenza Type A Ag (NEGATIVE) Influenza Type B Ag (NEGATIVE) RSV (PCR) (Negative) SARS-CoV-2 (PCR) (NEGATIVE) Group A Strep Antibody (NEGATIVE) 06/22/21 Range/Units 12:34 WBC (4.0-10.5) K/mm3 RBC (4.1-5.6) M/mm3 Hgb (12.5-18.0) gm/dl Hct (42-50) % MCV (78-100) fl MCH (26-32) pg MCHC (32-36) g/dl RDW (11.5-14.0) % Plt Count (150-450) K/mm3 Gran % (36.0-66.0) % Eos # (Auto) (0-0.5) Absolute Lymphs (auto) (1.0-4.6) Absolute Monos (auto) (0.0-1.3) Lymphocytes % (24.0-44.0) % Monocytes % (0.0-12.0) % Eosinophils % (0.00-5.0) % Basophils % (0.0-0.4) % Absolute Granulocytes (1.4-6.9) Segmented Neutrophils (36.-66.) % Band Neutrophils (0.0-2.0) % Lymphocytes (Manual) (24-44) % Monocytes (Manual) (0.0-12.0) % Basophils # (0-0.4) Platelet Estimate (NORMAL) RBC Morphology Sodium (137-145) mmol/L Potassium (3.5-5.1) mmol/L Chloride (98-107) mmol/L Carbon Dioxide (22-30) mmol/L Anion Gap (5-15) MEQ/L BUN (9-20) mg/dL Creatinine (0.66-1.25) mg/dL Estimated GFR ML/MIN Glucose (74-106) mg/dL Calcium (8.4-10.2) mg/dL Total Bilirubin (0.2-1.3) mg/dL AST (17-59) U/L ALT (0-50) U/L Alkaline Phosphatase (38-126) U/L Serum Total Protein (6.3-8.2) g/dL Albumin (3.5-5.0) g/dL Urine Color YELLOW (YELLOW) Urine Appearance SLIGHTLY CLOUDY (CLEAR) Urine pH 5.0 (5-6) Ur Specific [place] 1.014 (1.005-1.025) Urine Protein 100 (Negative) Urine Ketones NEGATIVE (NEGATIVE) Urine Blood MODERATE (0-5) [place]/ul Urine Nitrite NEGATIVE (NEGATIVE) Urine Bilirubin NEGATIVE (NEGATIVE) Urine Urobilinogen NEGATIVE (0-1) mg/dL Ur Leukocyte Esterase TRACE (NEGATIVE) Urine WBC (Auto) 11-15 (0-5) /HPF Urine RBC (Auto) 3-5 (0-2) /HPF U Hyaline Cast (Auto) 0-2 (0-2) /LPF U Epithel Cells (Auto) NONE (FEW) /HPF Urine Bacteria (Auto) MODERATE (NEGATIVE) /HPF Urine Mucus (Auto) SLIGHT (NEGATIVE) /HPF Urine Culture Reflexed ORDERED SEPARATELY (NO) Urine Glucose NEGATIVE (NEGATIVE) mg/dL Monoscreen (Negative) Influenza Type A Ag (NEGATIVE) Influenza Type B Ag (NEGATIVE) RSV (PCR) (Negative) SARS-CoV-2 (PCR) (NEGATIVE) Group A Strep Antibody (NEGATIVE) - Progress Progress: improved Progress Note: 06/22/21 14:04 Chest x-ray is negative for any acute cardiopulmonary process. CAT scan of the head without contrast negative senile brain 06/22/21 16:[address] Youngblood who is covering for Dr. Grant and unassigned patients at this time. I reviewed the patient history, physical findings, results of laboratory and radiographic work-up. We will make him a full admission and run IV fluids and intravenous antibiotics and repeat labs in the morning. Discussed with DrDustin: Tonio Counseled pt/family regarding: lab results, diagnosis, need for follow-up, rad results - Departure Departure Disposition: In-patient Admission Clinical Impression: Acute renal failure, UTI (urinary tract infection) Condition: Fair Critical Care Time: No Referrals: HOSPITAL,'S [Primary Care Provider] - Follow up/PCP as directed
[2021-06-22] MEDS ORDERED: Sodium Chloride 0.9% 500 ML 500 ML IV ONE ×2 (12:25→12:48)
[2021-06-22 13:13] LABS: ALBUMIN 3.9 g/dL (3.5-5.0); ANION GAP 18.8 MEQ/L (5-15); BILIRUBIN,TOTAL 1.4 mg/dL (0.2-1.3); Creatinine 1 4.28 mg/dL (0.66-1.25); EST GLOMERULAR FILTRATION RATE 14.1 ML/MIN; Potassium 4.4 mmol/L (3.5-5.1); Total Protein 7.3 g/dL (6.3-8.2)
--- NOTE | 2021-06-22 13:15 | XRAY ---
Indication: Lethargy. Multiple contiguous axial images obtained through the head without contrast. Comparison: February 11, 2021. Again age-appropriate global atrophy and moderate periventricular degenerative micro-ischemia bilaterally. No acute intracranial hemorrhage, abnormal extra-axial fluid collection, or mass effect. Fourth ventricle is midline without hydrocephalus. Bony calvarium intact. Visualized paranasal sinuses and mastoid air cells are clear. Impression: Continued nonacute senile brain.
[2021-06-22 13:16] LABS: Appearance SLIGHTLY CLOUDY (CLEAR); Bacteria MODERATE /HPF (NEGATIVE); Bilirubin NEGATIVE (NEGATIVE); Blood MODERATE Ery/ul (0-5); Glucose NEGATIVE (NEGATIVE); Hyaline Casts 0-2 /LPF (0-2); Ketones NEGATIVE (NEGATIVE); Leukocyte Esterase TRACE (NEGATIVE); Mucus SLIGHT /HPF (NEGATIVE); Nitrite NEGATIVE (NEGATIVE); Protein,Urine Dip 100 (Negative); Specific Gravity 1.014 (1.005-1.025); Urobilinogen NEGATIVE mg/dL (0-1)
--- NOTE | 2021-06-22 13:25 | XRAY ---
Indication: Unresponsive. Comparison: February 14, 2021. Portable chest remains clear again with incidental left upper lobe calcified granuloma. Heart not enlarged again with CABG. Bony thorax intact again with osteopenia and degenerative changes. Impression: Continued nonacute chest with chronic features.
[2021-06-22 14:00] LABS: INFLUENZA A NEGATIVE (NEGATIVE); INFLUENZA B NEGATIVE (NEGATIVE)
[2021-06-22] MEDS ORDERED: ROCEPHIN 1 Gm-D5w 50 ml Bag** 1 G/50 ML IVPB IV STA (14:16)
[2021-06-22] MEDS ORDERED: ROCEPHIN 1 Gm-D5w 50 ml Bag** 1 G/50 ML IVPB IV ONE (14:19)
[2021-06-22 14:23] LABS: Absolute Neutrophil Ct (ANC) 23.98 (1.4-6.9); Basophil (Absolute #) 0.02 (0-0.4); Eosinophil % 0.1 % (0.00-5.0); Eosinophil (Absolute #) 0.02 (0-0.5); Hematocrit 44.8 % (42-50); Hemoglobin 14.5 gm/dl (12.5-18.0); Lymphocyte (Absolute #) 0.56 (1.0-4.6); Lymphocytes % 2.2 % (24.0-44.0); Mean Cell Volume 84.2 fl (78-100); Mean Corpuscular Hemoglobin 27.3 pg (26-32); Mean Corpuscular Hgb Concent. 32.4 g/dl (32-36); Monocyte (Absolute #) 1.02 (0.0-1.3); Neutrophil % 93.6 % (36.0-66.0); Platelet Count 76 K/mm3 (150-450); Red Blood Count 5.32 M/mm3 (4.1-5.6); Red Cell Distribution Width 17.4 % (11.5-14.0)
[2021-06-22 14:24] LABS: White Blood Count 25.6 K/mm3 (4.0-10.5)
[2021-06-22 14:29] LABS: BAND 5 % (0.0-2.0); Lymphocytes 1 % (24-44); Monocyte 4 % (0.0-12.0); Neutrophils 90 % (36.-66.); Total Cells Counted 100
[2021-06-22 14:30] LABS: Platelet Estimate DECREASED (NORMAL)
[2021-06-22] MEDS ORDERED: Sodium Chloride 0.9% 1000 ML 1,000 ML IV SCH ×2 (15:15→17:09)
[2021-06-22] MEDS ORDERED: Sodium Chloride 0.9% 1000 ML 1,000 ML ONE (15:27)
[2021-06-22 15:49] LABS: INFLUENZA A NEGATIVE (NEGATIVE); INFLUENZA B NEGATIVE (NEGATIVE); RESPIRATORY SYNCTIAL VIRUS NEGATIVE (Negative); SARS-CoV-2 Xpert Express NEGATIVE (NEGATIVE)
[2021-06-22] MEDS ORDERED: Zofran 4 MG/2 ML VIAL IV PRN (17:09)
[2021-06-22] MEDS ORDERED: FEVERALL 650 MG PR PRN (17:09)
[2021-06-23 05:14] LABS: Hematocrit 38.9 % (42-50); Hemoglobin 12.6 gm/dl (12.5-18.0); Mean Cell Volume 84.9 fl (78-100); Mean Corpuscular Hemoglobin 27.5 pg (26-32); Mean Corpuscular Hgb Concent. 32.4 g/dl (32-36); Platelet Count 58 K/mm3 (150-450); Red Blood Count 4.58 M/mm3 (4.1-5.6); Red Cell Distribution Width 17.4 % (11.5-14.0); White Blood Count 18.5 K/mm3 (4.0-10.5)
[2021-06-23 05:47] LABS: ALBUMIN 3.4 g/dL (3.5-5.0); ANION GAP 13.8 MEQ/L (5-15); BILIRUBIN,TOTAL 1.5 mg/dL (0.2-1.3); Calcium 8.7 mg/dL (8.4-10.2); Creatinine 1 2.87 mg/dL (0.66-1.25); EST GLOMERULAR FILTRATION RATE 22.4 ML/MIN; Potassium 3.9 mmol/L (3.5-5.1); Total Protein 6.6 g/dL (6.3-8.2)
[2021-06-23 07:09] LABS: ATYPICAL LYMPHS 1 %; BAND 2 % (0.0-2.0); Lymphocytes 1 % (24-44); Neutrophils 96 % (36.-66.); Total Cells Counted 100; Toxic Granulation 1+
[2021-06-23 07:10] LABS: ANISOCYTOSIS 1+; Platelet Estimate DECREASED (NORMAL)
[2021-06-23] MEDS ORDERED: Sodium Chloride 0.9% 1000 ML 1,000 ML IV SCH ×2 (14:00→14:30)
[2021-06-23] MEDS: ROCEPHIN 1 Gm-D5w 50 ml Bag** 1 G/50 ML IVPB IV SCH (14:11)
--- NOTE | 2021-06-23 14:20 | XRAY ---
Indication: Pain. Acute renal failure. Patient nonverbal and unable to communicate. Multiple contiguous axial images obtained through the abdomen and pelvis without contrast. Comparison: None Mild diffuse respiration artifact and beam artifact from patient's arms/hands. Lung bases demonstrates moderate bibasilar dependent atelectasis and tiny left effusion. Incidental small medial left lung base calcified granuloma. Heart not enlarged with extensive coronary calcifications and CABG surgery. Noncontrasted stomach and bowel loops appear nonobstructed. Appendix not seen. Mild fecal debris in the right hemicolon and mild rectal impaction. Scattered descending and sigmoid diverticulosis. Urinary bladder is near empty with Palafox balloon catheter in situ. Remaining liver, gallbladder, pancreas, spleen, adrenal glands, kidneys, ureters, and bladder are unremarkable for noncontrast exam. Mild scattered aortoiliac calcifications with mild distal aortic ectasia. Osseous structures intact with mild osteopenia and mild degenerative changes throughout the thoracolumbar spine and both hips. No ventral or inguinal hernias. Impression: 1. Respiration and beam artifact. 2. Colonic diverticulosis with mild rectal impaction. 3. Bibasilar dependent atelectasis and tiny left effusion. 4. Scattered arteriosclerotic disease with distal aortic ectasia. 5. Osteopenia and degenerative spondylosis.
[2021-06-23] MEDS ORDERED: Dulcolax 10 MG SUPP PR ONE (16:00)
[2021-06-23] MEDS ORDERED: Dulcolax 10 MG SUPP ONE (18:39)
[2021-06-24 05:18] LABS: Hematocrit 37.6 % (42-50); Hemoglobin 11.8 gm/dl (12.5-18.0); Mean Cell Volume 87.2 fl (78-100); Mean Corpuscular Hemoglobin 27.4 pg (26-32); Mean Corpuscular Hgb Concent. 31.4 g/dl (32-36); Platelet Count 69 K/mm3 (150-450); Red Blood Count 4.31 M/mm3 (4.1-5.6); Red Cell Distribution Width 17.6 % (11.5-14.0); White Blood Count 13.4 K/mm3 (4.0-10.5)
[2021-06-24 05:38] LABS: ALBUMIN 3.3 g/dL (3.5-5.0); ANION GAP 11.9 MEQ/L (5-15); BILIRUBIN,TOTAL 1.6 mg/dL (0.2-1.3); Calcium 8.6 mg/dL (8.4-10.2); Creatinine 1 1.97 mg/dL (0.66-1.25); EST GLOMERULAR FILTRATION RATE 34.6 ML/MIN; Potassium 3.9 mmol/L (3.5-5.1); Total Protein 6.7 g/dL (6.3-8.2)
[2021-06-24 06:41] LABS: Slide Review YES
[2021-06-24] MEDS: ROCEPHIN 1 Gm-D5w 50 ml Bag** 1 G/50 ML IVPB IV SCH (11:11)
[2021-06-24] MEDS: Dextrose 5% -0.45 NaCl 1000 ML 1,000 ML IV SCH (14:38)
[2021-06-24] MEDS ORDERED: Cardizem IV 50 MG/10 ML IV ONE (20:34)
[2021-06-24] MEDS: CARDIZEM DRIP 100 MG/100 ML D5W 100 ML IV PRN (21:09)
[2021-06-25] MEDS: Dextrose 5% -0.45 NaCl 1000 ML 1,000 ML IV SCH ×2 (02:37→15:19)
[2021-06-25 04:45] LABS: Hematocrit 40.3 % (42-50); Hemoglobin 12.4 gm/dl (12.5-18.0); Mean Cell Volume 88.2 fl (78-100); Mean Corpuscular Hemoglobin 27.1 pg (26-32); Mean Corpuscular Hgb Concent. 30.8 g/dl (32-36); Mean Platelet Volume 13.2 fl (7.5-11.0); Platelet Count 75 K/mm3 (150-450); Red Blood Count 4.57 M/mm3 (4.1-5.6); Red Cell Distribution Width 17.7 % (11.5-14.0); White Blood Count 8.2 K/mm3 (4.0-10.5)
[2021-06-25 05:09] LABS: ALBUMIN 3.3 g/dL (3.5-5.0); ANION GAP 10.3 MEQ/L (5-15); BILIRUBIN,TOTAL 1.3 mg/dL (0.2-1.3); Calcium 8.4 mg/dL (8.4-10.2); Creatinine 1 1.69 mg/dL (0.66-1.25); EST GLOMERULAR FILTRATION RATE 41.3 ML/MIN; Potassium 3.6 mmol/L (3.5-5.1); Total Protein 6.6 g/dL (6.3-8.2)
[2021-06-25 06:16] LABS: Slide Review YES
[2021-06-25] MEDS: Cardizem CD 120 MG PO SCH (09:28)
[2021-06-25] MEDS: CARDIZEM DRIP 100 MG/100 ML D5W 100 ML IV PRN (09:29)
[2021-06-25] MEDS: ROCEPHIN 1 Gm-D5w 50 ml Bag** 1 G/50 ML IVPB IV SCH (09:29)
[2021-06-25] MEDS ORDERED: TRANDATE 20 MG/4 ML SYRINGE IV ONE (09:30)
[2021-06-25] MEDS ORDERED: ENOXAPARIN SODIUM SQ SCH (10:00)
[2021-06-25] MEDS: Lopressor 25MG Tab PO SCH (16:52)
[2021-06-25] MEDS: ELIQUIS 2.5 MG TABLET PO SCH (21:20)
[2021-06-26] MEDS: Dextrose 5% -0.45 NaCl 1000 ML 1,000 ML IV SCH (02:58)
[2021-06-26 04:35] LABS: Hematocrit 39.8 % (42-50); Hemoglobin 12.3 gm/dl (12.5-18.0); Mean Cell Volume 88.1 fl (78-100); Mean Corpuscular Hemoglobin 27.2 pg (26-32); Mean Corpuscular Hgb Concent. 30.9 g/dl (32-36); Platelet Count 79 K/mm3 (150-450); Red Blood Count 4.52 M/mm3 (4.1-5.6); Red Cell Distribution Width 17.5 % (11.5-14.0); White Blood Count 7.7 K/mm3 (4.0-10.5)
[2021-06-26 04:42] LABS: ALBUMIN 3.1 g/dL (3.5-5.0); ANION GAP 9.2 MEQ/L (5-15); BILIRUBIN,TOTAL 1.3 mg/dL (0.2-1.3); Calcium 8.1 mg/dL (8.4-10.2); Creatinine 1 1.44 mg/dL (0.66-1.25); EST GLOMERULAR FILTRATION RATE 49.7 ML/MIN; Potassium 3.2 mmol/L (3.5-5.1); Total Protein 6.3 g/dL (6.3-8.2)
[2021-06-26 07:11] LABS: Slide Review YES
[2021-06-26] MEDS: Cardizem CD 120 MG PO SCH (10:17)
[2021-06-26] MEDS: ELIQUIS 2.5 MG TABLET PO SCH (10:17)
[2021-06-26] MEDS: Lopressor 25MG Tab PO SCH (10:17)
[2021-06-26] MEDS: ROCEPHIN 1 Gm-D5w 50 ml Bag** 1 G/50 ML IVPB IV SCH (10:20)
[2021-06-26 13:17] LABS: Appearance CLEAR (CLEAR); Bacteria RARE /HPF (NEGATIVE); Bilirubin NEGATIVE (NEGATIVE); Blood MODERATE Ery/ul (0-5); Glucose NEGATIVE (NEGATIVE); Ketones NEGATIVE (NEGATIVE); Leukocyte Esterase SMALL (NEGATIVE); Mucus SLIGHT /HPF (NEGATIVE); Nitrite NEGATIVE (NEGATIVE); Protein,Urine Dip 30 (Negative); Specific Gravity 1.012 (1.005-1.025); Urobilinogen NEGATIVE mg/dL (0-1)
[2021-06-26 13:21] VITALS: BP 102/71; O2SAT 93
[2021-06-26 13:33] VITALS: PULSE 97
--- NOTE | 2021-07-01 13:04 | ECHO ---
DATE OF PROCEDURE: 06/26/2021 CLINICAL INFORMATION: Atrial fibrillation with rapid ventricular response. The patient is unable to answer questions or follow directions. The M-mode 2D, and Doppler echocardiogram including color flow Doppler shows the left ventricle is dilated with a dimension of 6.0 cm. There is no thrombus present. The septal wall thickness is increased at 1.6 cm. The left ventricular posterior wall thickness is increased at 1.6 cm. The left ventricular systolic function is at the lower limits of normal with an ejection fraction estimated at 50 to 55%. The right ventricle is grossly normal. The left atrium is mildly dilated with a dimension of 4.7 cm. The interatrial septum is intact. The right atrium is normal. The aortic valve opens well. There is mild sclerosis. The aortic valve is trileaflet. There is no aortic regurgitation. There is mitral valve leaflet thickening associated with mild mitral regurgitation. There is mild tricuspid regurgitation. The right ventricular systolic pressure is calculated to be 48 mm of [place]. The pulmonic valve is not well visualized. The aortic root is dilated with a dimension of 4.1 cm. There is no pericardial effusion present. IMPRESSION: 1) LOW NORMAL CONTRACTILITY OF THE LEFT VENTRICLE. 2) MODERATE CONCENTRIC LEFT VENTRICULAR HYPERTROPHY. 3) MILD LEFT VENTRICULAR DILATATION. 4) MILD MITRAL REGURGITATION. 5) MILD TRICUSPID REGURGITATION. 6) MODERATE PULMONARY HYPERTENSION. 7) MILD LEFT ATRIAL DILATATION.
--- NOTE | 2021-07-09 08:44 | PCM.HP ---
History of Present Illness - Chief Complaint Chief Complaint: uti, chronic renal failure, Date: 06/23/21 History of Present Illness: is a 85 year old male. Pt. was with much less responsiveness at detention and sent to ER for evaluation, there found to be in acute renal failure secondary to dehydration and had a UTI. - Review of Systems Constitutional: Lethargy, Weakness, No Fever, No Chills Eyes: No Symptoms Ears, Nose, & Throat: No Symptoms Respiratory: No Cough, No Short Of Breath Cardiac: No Chest Pain, No Edema, No Syncope Abdominal/Gastrointestinal: No Abdominal Pain, No Nausea, No Vomiting, No Diarrhea Genitourinary Symptoms: No Dysuria Musculoskeletal: No Back Pain, No Neck Pain Skin: No Rash Neurological: Lethargy, No Dizziness, No Focal Weakness, No Sensory Changes Psychological: No Symptoms Endocrine: No Symptoms Hematologic/Lymphatic: No Symptoms Immunological/Allergic: No Symptoms Medications & Allergies Home Medications: Home Medication List Acetaminophen 325 mg [Tylenol 325 mg] 650 mg PO Q4HPRN PRN 06/22/21 [H istory Confirmed 06/22/21] Apixaban [Eliquis 2.5 mg Tablet] 2.5 mg PO BID #60 tablet 06/26/21 [Rx] Cephalexin Mh 500 mg [Keflex 500 mg] 500 mg PO TID 10 Days #30 cap 06/26/21 [Rx] Diltiazem HCl 120 mg [Cardizem CD 120 MG] 240 mg PO QAM #30 06/26/21 [Rx] Metoprolol Tartrate 25 mg [Lopressor 25MG Tab] 25 mg PO HS #30 tab 06/26/21 [Rx] Allergies/Adverse Reactions: Allergies Allergy/AdvReac Type Severity Reaction Status Date / Time No Known Drug Allergies Allergy Verified 06/22/21 12:34 - Past Medical History Past Medical History: Yes Neurological History: Stroke Cardiac History: Coronary Artery Disease, High Cholesterol Comment: HEAD BLEED - Past Surgical History Past Surgical History: Yes Cardiac History: CABG - Social History Smoking Status: Never smoker Exposure to second hand smoke: No Alcohol: None Drug Use: none - Physical Exam General Appearance: no apparent distress, alert Neurologic Exam: No motor deficits Eye Exam: PERRL/EOMI, eyes nml inspection Ears, Nose, Throat Exam: normal ENT inspection, pharynx normal, moist mucous membranes Neck Exam: normal inspection, non-tender, supple, full range of motion Respiratory Exam: normal breath sounds, lungs clear, No respiratory distress Cardiovascular Exam: regular rate/rhythm, normal heart sounds, normal peripheral pulses Gastrointestinal/Abdomen Exam: soft, normal bowel sounds, No tenderness, No mass Back Exam: normal inspection, No CVA tenderness, No vertebral tenderness Extremity Exam: normal inspection, normal range of motion, pelvis stable Skin Exam: normal color, warm, dry, No rash Lymphatic Exam: No adenopathy Results - Labs Lab/Micro Results: Microbiology 06/26/21 13:20 Urine Culture - Final Urine, Indwelling Catheter NO GROWTH 06/22/21 12:46 Blood Culture Gram Stain - Final Blood Blood Culture - Final Escherichia Coli 06/22/21 12:40 Blood Culture Gram Stain - Final Blood Blood Culture - Final Escherichia Coli 06/22/21 12:34 Urine Culture - Final Catherized Escherichia Coli Assessment/Plan (1) Dehydration Status: Acute Assessment & Plan: iv hydration Code(s): E86.0 - DEHYDRATION (2) AMS (altered mental status) Status: Acute Code(s): R41.82 - ALTERED MENTAL STATUS, UNSPECIFIED (3) Acute renal failure Status: Acute Assessment & Plan: iv hydration (4) UTI (urinary tract infection) Status: Acute Code(s): N39.0 - URINARY TRACT INFECTION, SITE NOT SPECIFIED
--- NOTE | 2021-07-09 08:48 | PCM.DS ---
Discharge Summary Date of Admission: 06/22/21 17:05 Date of Discharge: 06/26/2021 Admitting Physician: HANSEL MCCOLLUM DO Consults: Consults on Case 06/25/21 09:42 Tele-Health Consult ROUTINE Primary Care Provider: [facility] Allergies Allergies No Known Drug Allergies Allergy (Verified 06/22/21 12:34) Hospital Summary - Hospital Course Hospital Course: Pt. admitted and started on iv antibiotics and iv hydration, physiologically the patient responded well, but psychologically/mentally he did not. With labs returned to normal, and mentally he had not it was discussed with family regarding discharge back to [place] with hospice services. Pt. family decided that given the current state hospice services were warranted and pt. was discharged back to [place] - Vitals & Intake/Output Vital Signs: Vital Signs Temperature 100.2 F 06/26/21 12:00 Pulse Rate 97 H 06/26/21 12:00 Respiratory Rate 28 H 06/26/21 12:00 Blood Pressure 102/71 06/26/21 12:00 O2 Sat by Pulse Oximetry 93 L 06/26/21 12:00 - Lab Result Diagrams: 06/26/21 04:15 06/26/21 04:15 Micro Results-Entire Visit: Microbiology 06/26/21 13:20 Urine Culture - Final Urine, Indwelling Catheter NO GROWTH 06/22/21 12:46 Blood Culture Gram Stain - Final Blood Blood Culture - Final Escherichia Coli 06/22/21 12:40 Blood Culture Gram Stain - Final Blood Blood Culture - Final Escherichia Coli 06/22/21 12:34 Urine Culture - Final Catherized Escherichia Coli Discharge Exam General Appearance: no apparent distress, alert Neurologic Exam: alert, cooperative, sensation nml, No motor deficits Eye Exam: PERRL, EOMI, eyes nml inspection Ears, Nose, Throat Exam: normal ENT inspection, pharynx normal, moist mucous membranes Neck Exam: normal inspection, non-tender, supple, full range of motion Respiratory Exam: normal breath sounds, lungs clear, No respiratory distress Cardiovascular Exam: regular rate/rhythm, normal heart sounds Gastrointestinal/Abdomen Exam: soft, No tenderness, No mass Male Genitalia Exam: deferred Rectal Exam: deferred Back Exam: normal inspection, normal range of motion, No CVA tenderness, No vertebral tenderness Extremity Exam: normal inspection, normal range of motion Skin Exam: normal color, warm, dry Final Diagnosis/Problem List - Final Discharge Diagnosis/Problem (1) Dehydration Status: Acute Code(s): E86.0 - DEHYDRATION (2) AMS (altered mental status) Status: Acute Code(s): R41.82 - ALTERED MENTAL STATUS, UNSPECIFIED (3) Acute renal failure Status: Acute (4) UTI (urinary tract infection) Status: Acute Assessment & Plan: wbc and symptoms of uti resolved. Code(s): N39.0 - URINARY TRACT INFECTION, SITE NOT SPECIFIED - Discharge Discharge Date: 06/26/21 Disposition: DC TO [facility] Condition: Fair Prescriptions: New Diltiazem HCl 120 mg [Cardizem CD 120 MG] 240 mg PO QAM #30 Apixaban [Eliquis 2.5 mg Tablet] 2.5 mg PO BID #60 tablet Cephalexin Mh 500 mg [Keflex 500 mg] 500 mg PO TID 10 Days #30 cap Metoprolol Tartrate 25 mg [Lopressor 25MG Tab] 25 mg PO HS #30 tab Continue Acetaminophen 325 mg [Tylenol 325 mg] 650 mg PO Q4HPRN PRN PRN Reason: Pain And/Or Fever Additional Instructions: [facility] TO INITIATE CARE AT [facility] Forms: Ambulance Transport Record, Transfer Record Half-Way
== END 2021-06-26 14:15 | DRG 641 ==
LOC: ED 12:07 → UNDOADMIN 17:05 → MED SURG 17:05 → ICU 06-24 20:43 → MED SURG 06-24 20:43 → UNDOADMIN 06-24 20:46 → ICU 06-24 20:46
PROVIDERS: ADMIT Family Medicine; ATTEND Family Medicine
DX: E86.0 Dehydration (principal); N17.9 Acute kidney failure, unspecified; N39.0 Urinary tract infection, site not specified; R47.01 Aphasia; R41.82 Altered mental status, unspecified; I48.91 Unspecified atrial fibrillation; E78.00 Pure hypercholesterolemia, unspecified; D69.6 Thrombocytopenia, unspecified; Z20.828 Contact with and (suspected) exposure to other viral communicable diseases; Z79.899 Other long term (current) drug therapy; Z95.1 Presence of aortocoronary bypass graft
CPT/HCPCS: 0241U; 36000; 36415; 51702; 70450; 71045; 74176; 80053; 81001; 83735; 84484; 85025; 85027; 86308; 87040; 87077; 87086; 87186; 87400; 87651; 93306; 94760; 99285; Q3014; J0696; J1650; A9270-GY